=== PATIENT | female | born 1955 | race American Indian/Alaskan Native ===

== ENCOUNTER 2020-03-02 21:21 | Emergency (ER) | payer MEDICARE, MEDICAID ==
[2020-03-02 21:38] VITALS: BP 147/64
--- NOTE | 2020-03-02 22:33 | XRay Report ---
RIGHT KNEE 3 VIEWS INDICATION / CLINICAL INFORMATION: Right knee pain and swelling after fall today. COMPARISON: None available. FINDINGS: BONES and JOINT(S): No acute fracture or subluxation. 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 SOFT TISSUES: No significant abnormality. ADDITIONAL FINDINGS: None. IMPRESSION: 1. No acute findings. 2. Mild osteoarthritis. Signer Name: Michele Alatorre MD Signed: 03/02/2020 10:29 PM Workstation Name: [id number]
== END 2020-03-03 04:00 | disposition left against medical advice (07) ==
LOC: ED 21:21
DX: S89.91XA Unspecified injury of right lower leg, initial encounter (principal); Z53.21 Procedure and treatment not carried out due to patient leaving prior to being seen by health care provider; W01.0XXA Fall on same level from slipping, tripping and stumbling without subsequent striking against object, initial encounter; Y93.89 Activity, other specified; Y92.89 Other specified places as the place of occurrence of the external cause; Y99.8 Other external cause status